=== PATIENT | female | born 2000 | race Caucasian/White ===

== ENCOUNTER 2023-03-20 13:41 | Emergency (ER) | payer OTHER ==
[~2023-03-20] VITALS: Ht 160 cm; Wt 79.8 kg
[2023-03-20 13:41] VITALS: BP_SYST 137; PULSE 84; RESP 18; TEMP 97.9; O2SAT 98
[2023-03-20 14:19] LABS: BILIRUBIN,URINE NEGATIVE (NEGATIVE); CLARITY/URINE CLEAR (CLEAR); COLOR,URINE YELLOW (YELLOW); GLUCOSE,URINE NEGATIVE (NEGATIVE); KETONES,URINE NEGATIVE (NEGATIVE); LEUKOCYTE ESTERASE ,URINE 3+ (NEGATIVE); NITRITE, URINE NEGATIVE (NEGATIVE); PROTEIN URINE NEGATIVE (NEGATIVE); UROBILINOGEN,URINE 0.2 (0.2-1.0)
[2023-03-20 14:26] LABS: BLOOD, URINE TRACE (NEGATIVE)
[2023-03-20 14:37] LABS: BACTERIA,URINE FEW /HPF (None Seen); MUCUS,URINE 1+ /LPF (None Seen)
[2023-03-20] MEDS ORDERED: NITROFURANTOIN MONOHYD/M-CRYST 100 MG CAPSULE (MacroBID) PO ONE (15:00)
[2023-03-20] MEDS ORDERED: NITR-85 PO (15:57)
[2023-03-20 16:07] VITALS: BP_SYST 128; PULSE 74; RESP 18; TEMP 97.9; O2SAT 97
== END 2023-03-20 16:04 | disposition home or self-care (01) ==
LOC: SED 13:41
DX: O23.43 Unspecified infection of urinary tract in pregnancy, third trimester (principal); N39.0 Urinary tract infection, site not specified; Z3A.39 39 weeks gestation of pregnancy; Z79.899 Other long term (current) drug therapy
CPT/HCPCS: 76805-TC; 81000; 81001; 81015; 87086; 99284